=== PATIENT | male | born 1995 | race Caucasian/White ===

== ENCOUNTER 2016-09-12 21:15 | Emergency (ER) | payer OTHER ==
--- NOTE | 2016-09-12 22:02 | EDPHY ---
H & P Time Seen by Provider: 09/12/16 21:39 HPI/ROS: CHIEF COMPLAINT: Right clavicle fracture pain HISTORY OF PRESENT ILLNESS: 20-year-old male sustained a clavicle fracture yesterday while skiing. He was seen at [facility] had a x-ray performed, splinted. Today he was walking and felt the area moving his complaining of new pain to the area. Intact skin. PHYSICAL EXAM (Prior to examination, patient consented to physical exam, hands were washed and my usual and customary physical exam procedures followed) 1) GENERAL: Well-developed, well-nourished, alert and oriented. Appears to be in no acute distress. 2) HEAD: Normocephalic 3) HEENT: sclera anicteric 4) LUNGS: Breathing comfortably. 5) SKIN: A bandages in place which is removed The skin is intact with no tenting. 6) MUSCULOSKELETAL: palpable abnormality the right mid clavicle with osseous fragments palpated. 7) NEUROLOGIC: Radial ulnar median nerve function intact. Bilateral deltoid sensation intact. Smoking Status: Current every day smoker Constitutional: Initial Vital Signs Temperature (C) 37 C 09/12/16 21:20 Heart Rate 85 09/12/16 21:20 Respiratory Rate 14 09/12/16 21:20 Blood Pressure 124/84 H 09/12/16 21:20 O2 Sat (%) 95 09/12/16 21:20 O2 Delivery Mode Room Air Allergies/Adverse Reactions: No Known Allergies Allergy (Unverified 09/12/16 21:19) Home Medications: Medication Instructions Recorded Hydrocodone/APAP 5/325 [[place] 1 tab PO Q6 PRN #15 tab 09/12/16 5/325 (RX)] MDM/Departure - MDM Medications Given: Discontinued Medications Oxycodone/Acetaminophen (Percocet 5/325) 1 tab PO EDNOW ONE Stop: 09/12/16 22:20 Last Admin: 09/12/16 22:22 Dose: 1 tab ED Course/Re-evaluation: 9:59 p.m.: I have reviewed the patient's x-rays from [facility] yesterday. He feels that the area has shifted/moved. Will repeat clavicle x-ray. At this time the skin is not tented, there is no necrosis of tissue. I am able to palpate the bony points of the fracture. 10:27 p.m.: Re-evaluation. Reviewed his x-ray with him. This is a closed fracture with no tenting of the tissue. He has been placed in a sling and given analgesia. He has been given the name of on-call orthopedics stressed the importance of close follow-up and given strict return precautions. - Depart Disposition: Home, Routine, Self-Care Clinical Impression: Fracture of right clavicle Qualifiers: Encounter type: initial encounter Clavicle location: shaft Fracture type: closed Fracture alignment: displaced Qualifier Code: (S42.021A) Displaced fracture of shaft of right clavicle, initial encounter for closed fracture Condition: Good Instructions: Clavicle Fracture (ED) Additional Instructions: Return to the ER immediately if you experience discoloration, have worsening pain, numbness, tingling, or any other symptoms that concern you. If you received x-rays in the emergency department today, be advised, that ligamentous , tendon, muscular, and other non-bony injury cannot be fully ruled out. If at any point the skin is puncture due to seek immediate medical attention. Wear your sling until your seen by orthopedic surgeon Prescriptions: Hydrocodone/APAP 5/325 [[place] 5/325 (RX)] 1 tab PO Q6 PRN #15 tab PRN Reason: Pain, Severe Referrals: Hung Mccray MD [Medical Doctor] - 1-2 days without fail (Dr. Hung Mccray is orthopedic surgeon)
[2016-09-12] MEDS ORDERED: OXYCODONE/APAP 5/325 TAB PO ONE (22:19)
[2016-09-12] MEDS ORDERED: OXYCODONE/APAP 5/325 TAB ONE (22:20)
[2016-09-12] MEDS ORDERED: HYDROCOD/APAP 5/325 PREPACK#6 BTL TAKEHOME ONE (22:29)
--- NOTE | 2016-09-12 22:45 | DX ---
Two Views Right Clavicle. (This report was initially dictated on the incorrect study.) Reason for examination: Followup right clavicular fracture documented on outside study performed yest erday. Findings: The midshaft displaced and mildly angulated right clavicular fracture is unchanged in align ment. The right AC joint is not widened. Impression: Displaced and mildly angulated right mid shaft right clavicular fracture is unchanged in alignment compared to the study from yesterday.
[2016-09-12 23:02] VITALS: BP 122/71; PULSE 66; RESP 15; TEMP 98.4; O2SAT 96
== END 2016-09-12 23:01 | disposition home or self-care (01) ==
DX: S42.021A Displaced fracture of shaft of right clavicle, initial encounter for closed fracture (principal); F17.200 Nicotine dependence, unspecified, uncomplicated; V00.328A Other snow-ski accident, initial encounter; Y93.23 Activity, snow (alpine) (downhill) skiing, snowboarding, sledding, tobogganing and snow tubing